=== PATIENT | female | born 1985 | race Caucasian/White ===

== ENCOUNTER 2016-07-12 09:37 | Emergency (ER) | payer MEDICARE, OTHER | END 2016-07-12 10:30 | disposition home or self-care (01) | LOC: ER1 09:37 | DX: J02.9 Acute pharyngitis, unspecified (principal); F17.200 Nicotine dependence, unspecified, uncomplicated; F41.9 Anxiety disorder, unspecified; Z79.899 Other long term (current) drug therapy | CPT/HCPCS: 87081; 87880; 99283 ==